=== PATIENT | male | born 1945 | race Caucasian/White ===

== ENCOUNTER 2024-11-10 10:15 | Outpatient (AMB) | payer MEDICARE, OTHER, SELFPAY ==
[2024-11-10 10:27] VITALS: BP 165/82; PULSE 65; RESP 18; TEMP 36.6; O2SAT 96; BMI 29.5
--- NOTE | 2024-11-10 10:27 | ACNOTE_ITS ---
Vital Signs 11/10/24 10:27 Height 1.68 m Height Method Stated Weight 83.121 kg Weight Measurement Method Standing Scale BMI 29.5 BP 165/82 H Blood Pressure Source Automatic Cuff Blood Pressure Location Left Upper Arm Position Sitting Respiration 18 Pulse 65 Pulse Source Monitor Temp 97.8 F Temp Source Oral Pulse Oximetry (%) 96 Oxygen Delivery Method Room Air Allergies/Meds Allergies & Medications Allergies No Known Allergies Allergy (Verified 11/10/24 10:27) Medication Reconciliation Lisinopril/Hydrochlorothiazide * (PRINZIDE 08/01. *) 1 tab PO QAM #0 tabs 08/19/14 [History Confirmed 11/10/24] aspirin 81 mg chewable tablet (Nick Chewable Low Dose Aspirin) 81 mg PO QDAY ##0 08/19/14 [History Confirmed 11/10/24] atorvastatin 40 mg tablet (Lipitor) 40 mg PO HS #0 tabs 08/19/14 [History Confirmed 11/10/24] cyclobenzaprine 5 mg tablet 5 mg PO TID PRN muscle spasm #30 tabs 06/02/21 [Rx Confirmed 11/10/24] ibuprofen 800 mg tablet 800 mg PO TID PRN pain #30 tabs 06/02/21 [Rx Confirmed 11/10/24] MA Intake Visit Data Collection New Patient or Established: New Patient (never been to [facility]) Seen by Clinical Staff ONLY (RN/MA): No Reason for Visit:: Impacted cerumen Pain Present Currently: No Pain scale:: 0 Pain Scale Used: Schroeder-Blount/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 Required: No PCP or OBGYN visit in last 3 months: No Hx Now: No Do You Feel Safe at Home: Yes Authorities Contacted: N/A Smoking Status Smoking Status: Never smoker Immunization / Flu Flu Vaccine in the Last 12 Months: No Flu Vaccine Exclusion Criteria: No Exclusion Criteria Past Medical History Past Medical History CARDIAC: Positive Hypertension; Negative Congestive Heart Failure RESPIRATORY: Negative Chronic Obstructive Pulmonary Disease (COPD) GENITOURINARY: Negative Renal Disease ENDOCRINE: Negative Diabetes Mellitus Type 1 or Diabetes Mellitus Type 2 Social History SMOKING STATUS: Smoking status: Never smoker Patient Portal Questionaires Social History Tobacco History Smoking Status: Never smoker Domestic Abuse History Do You Feel Safe at Home: Yes Review of Systems Report any current symptoms Only answer those that you have currently: Ear, Nose, & Throat hearing loss: Yes (Mild presbycusis) other: Yes (Impacted cerumen in ear canals) Past Medical History Past Medical History Have you ever been diagnosed with any of the following: Cardiology Problems Congestive Heart Failure: No Hypertension: Yes Respiratory Problems Chronic Obstructive Pulmonary Disease (COPD): No Genital/Urinary Problems Renal Disease: No Endocrine Problems Diabetes Mellitus Type 1: No Diabetes Mellitus Type 2: No History of Present Illness HPI Narrative 79-year-old male with past medical history of hypertension, hyperlipidemia presenting to the [facility] secondary to hearing changes over the past year. Patient states that about 1 year ago he was sent for hearing aid sizing and placement; however, he was told that he must go to PCP for cerumen disimpaction as he had high cerumen burden in his ear canals. Patient did not follow-up; however, due to the patient's requiring echocardiography at the adjacent clinic, he decided to present as a walk-in. Patient denies having any fever/chills, signs of upper respiratory tract infection, ear pain; however, he does state that he notices yellow discharge on his pillow when he wakes up. Review of Systems Review of Systems Systems Reviewed: All systems reviewed, normal except as documented ENT Ears, Nose, Mouth, and Throat: Reports hearing loss (Mild presbycusis) and Reports other (Impacted cerumen in ear canals) Objective/Exam Narrative Physical exam: Physical Exam: GENERAL: Appears stated age, pleasant and answering questions appropriately HEENT: NC/AT. Moist mucosa. PERRLA/EOMI. Bilateral inner ears impacted with cerumen CARDIO: Heart RRR, no obvious murmurs, no JVD. PULM: No coughing or visible SOB. Lungs CTA B/L. GI: Abdomen soft, NT/ND, +BS. SKIN/MSK/EXT: No wounds/discoloration/rashes/edema/amputations noted NEURO: No focal neurological deficits noted Assessment & Plan Diagnosis / Problem List (1) Excessive cerumen in both ear canals: Status: Acute Assessment & Plan: Patient presenting to the acutely cold clinic as a walk-in for impacted cerumen in bilateral ear canals 1 year ago patient was told that he has heavy cerumen burden during hearing aid placement/sizing Did not follow-up, has experienced yellow discharge on the pillow Denies any concerning symptoms such as fever/chills, upper respiratory tract open (coughing, runny nose), ear pain or bloody discharge Plan: Ear irrigation completed with sufficient improvement in ear canals upon reinspection Patient counseled on stopping Q-tip use Advised patient to follow-up for hearing aid placement Advanced Care Planning Advance care planning discussed with:: other (Not discussed; not relevant to visit) Office Procedures [facility] Level of Care Nursing/Assessment Patient Status: Initial/New Patient Nursing Assessment/Reassessment: Medication Reconciliation, Update PMH in EMR and Vital Signs Coordination of Care: Complex Care and Chronic Disease 1-5, Consent,records obtained, informed consent, Education Simp Pt/Fam and Staff clarify orders Special Needs: Ear Irrigation w/o wax removal New Patient Charge New Patient Point Assignment: [id number] New Patient Point Charge: SLASHER Level 3 ([id number]) Ear Irrig w/wo wax removal Ear Location Ear Site: Bilateral Irrigation Type Irrigation Type: Tap Water (Saline) Number of Times Irrigated: 6 Drainage Description Drainage Description: Brown and Yellow Drainage Amount: Moderate Ear Wax Removal Ambulatory Dept Location: [facility] Ear Irrigation w/wax removal: Yes Cerumenolytic Used: other (Saline) Technique: ear canal irrigated and ear canal curetted Results: Re-examined: cerumen removed completely TM Examination: TM(s) intact, normal appearance Ear Canal Exam: atraumatic Patient tolerated procedure ear wax: well Complications: pain (Mild tenderness) Pain Tolerance Pain: No Tolerance: Good
== END 2024-11-10 11:26 | disposition home or self-care (01) ==
LOC: HODAHC 10:15
PROVIDERS: Supervising Provider Internal Medicine
DX: H61.23 Impacted cerumen, bilateral (principal); I10 Essential (primary) hypertension; E78.5 Hyperlipidemia, unspecified
CPT/HCPCS: 69209; 99203; G0463